=== PATIENT | female | born 1990 | race African-American/Black ===

== ENCOUNTER 2020-12-03 10:07 | Emergency (ER) | payer BC, MEDICAID ==
[~2020-12-03] VITALS: Ht 170.2 cm; Wt 91.0 kg
[2020-12-03] MEDS ORDERED: SODIUM CHLORIDE 0.9% 1,000 ML IV ONE (10:45)
[2020-12-03] MEDS ORDERED: MORPHINE SULFATE 4 MG/ML CPJ (NOT FOR IM USE) IV ONE ×2 (10:45→14:45)
[2020-12-03 10:55] LABS: BASOPHILS % 0.4 % (0.0-2.0); EOSINOPHILS % 0.5 % (0.0-5.0); HEMATOCRIT. 31.2 % (36.0-48.0); HEMOGLOBIN. 9.8 g/dL (12.0-16.0); LYMPHOCYTES % 14.3 % (20.0-50.0); MEAN CORPUSCULAR HEMOGLOBIN 24.9 pg (28.0-32.0); MEAN CORPUSCULAR VOLUME 78.8 fL (81.0-99.0); NEUTROPHILS % 78.8 % (40.0-76.0); PLATELET 286 x1000/uL (130-400); RED BLOOD CELL COUNT 3.95 mill/uL (4.2-5.4); RED CELL DISTRIBUTION WIDTH 15.7 % (11.6-14.6)
[2020-12-03 11:01] LABS: CHLORIDE 109 mEq/L (98-107)
[2020-12-03 11:04] LABS: HCG SCREEN POSITIVE
[2020-12-03] MEDS ORDERED: DIPHENHYDRAMINE 50MG/ML VIAL IV ONE ×2 (11:15→14:45)
[2020-12-03] MEDS ORDERED: FENTANYL CITRATE/PF 50MCG/ML 2ML VIAL IV ONE (11:15)
[2020-12-03 11:29] LABS: B-HCG QUANTITATIVE 3793 mIU/mL (<3)
[2020-12-03] MEDS ORDERED: RHO(D) IMMUNE GLOBULIN 300 MCG/SYR IM ONE (13:15)
[2020-12-03] MEDS ORDERED: ACETAMINOPHEN 325MG TABLET PO ONE (13:15)
[2020-12-03] MEDS ORDERED: KETOROLAC 15MG/ML VIAL IV ONE (13:15)
[2020-12-03] MEDS ORDERED: METOCLOPRAMIDE HCL 10MG/2ML VIAL IV ONE (14:45)
[2020-12-03] MEDS ORDERED: IBUP-2028 MT (15:34)
[2020-12-03] MEDS ORDERED: ACET-2708 MT (15:35)
[2020-12-03 16:41] LABS: *AMPHETAMINES SCREEN URINE NEGATIVE (NEGATIVE); *BARBITURATES SCREEN URINE NEGATIVE (NEGATIVE); *BENZODIAZEPINES SCREEN URINE NEGATIVE (NEGATIVE); *COCAINE SCREEN URINE NEGATIVE (NEGATIVE)
[2020-12-03 16:42] LABS: CANNABINOID URINE SCREEN NEGATIVE (NEGATIVE); METHADONE URINE SCREEN NEGATIVE (NEGATIVE); OPIATES URINE SCREEN NEGATIVE (NEGATIVE); PHENCYCLIDINE URINE SCREEN NEGATIVE (NEGATIVE)
[2020-12-03 16:45] VITALS: BP 100/47
[2020-12-03 16:54] LABS: CLARITY URINE CLOUDY (CLEAR); COLOR URINE RED (YELLOW); KETONES URINE NEGATIVE (NEGATIVE); LEUKOCYTE ESTERASE URINE 2+ (NEGATIVE); NITRITE URINE POSITIVE (NEGATIVE); OCCULT BLOOD URINE 3+ (NEGATIVE); PROTEIN URINE 4+ (NEGATIVE); UROBILINOGEN URINE 0.2 E.U./dL (0.2-1.0)
== END 2020-12-03 17:11 | disposition home or self-care (01) ==
LOC: ER 10:36
DX: O03.9 Complete or unspecified spontaneous abortion without complication (principal); Z3A.08 8 weeks gestation of pregnancy
CPT/HCPCS: 36415; 76830; 76856; 80053; 80305; 81003; 83690; 84702; 84703; 85025; 86886; 86901; 90384; 96361; 96374; 96375; 96376; 99285; J1200; J1885; J2270; J2765; J3010; J7030; 96372